=== PATIENT | male | born 1955 | race Caucasian/White ===

== ENCOUNTER → 2018-03-02 15:17 | Outpatient (CLI) | payer OTHER, SELFPAY ==
[2018-03-02 15:47] LABS: Add Manual Diff / Slide Review NO; Basophils Percent Auto 0.6 % (0-2); Eosinophils Percent Auto 3.3 % (2-4); Hematocrit 42.4 % (41-53); Hemoglobin 14.1 g/dL (13.5-17.5); Lymphocytes Percent Auto 22.1 % (25-40); Mean Corpuscular HGB Conc 33.3 % (30-36); Mean Corpuscular Hemoglobin 29.5 PG (26-34); Mean Corpuscular Volume 88.6 fL (80-100); Monocytes Percent Auto 9.7 % (3-14); Neutrophils Absolute Auto 3500 /uL (3000-5900); Neutrophils Percent Auto 64.3 % (50-75); Platelet Count 296 X10^3/uL (150-400); Red Blood Cell Count 4.79 X10^6/uL (4.5-5.9); Red Cell Distribution Width 13.9 % (11.6-14.8); White Blood Cell Count 5.5 X10^3/uL (4.5-11.0)
[2018-03-02 17:29] LABS: Alanine Aminotransferase 35 IU/L (21-72); Albumin 4.3 g/dL (3.5-5.0); Albumin Globulin Ratio 1.4 (1.0-2.8); Alkaline Phosphatase 73 U/L (38-126); Aspartate Aminotransferase 39 IU/L (17-59); BUN Creatinine Ratio 23.8 (6-22); Bilirubin Total 0.7 mg/dL (0.2-1.3); Blood Urea Nitrogen 19 mg/dL (9-20); Calcium 9.5 mg/dL (8.4-10.2); Carbon Dioxide 32 mmol/L (22-32); Chloride 98 mmol/L (98-107); Cholesterol 157 mg/dL (140-199); Estimated Glomerular Filt Rate > 60.0 mL/min (>60); Glucose 72 mg/dL (80-110); HDL Cholesterol 62 mg/dL (40-60); HEMOLYSIS < 15 (0-50); LDL Cholesterol Calculated 85 mg/dL (<100); Potassium 4.3 mmol/L (3.4-5.1); Sodium 141 mmol/L (137-145); Total Protein 7.3 g/dL (6.3-8.2); Triglycerides 49 mg/dL (35-150)
[2018-03-02 17:59] LABS: Prostate Specific Antigen Scrn 0.241 ng/mL (0.1-4.0); Thyroid Stimulating Hormone 1.82 uIU/mL (0.47-4.68)
== END ==
PROVIDERS: Family Provider Family Medicine; PCP Family Medicine; Visit Provider Family Medicine
DX: N40.1 Benign prostatic hyperplasia with lower urinary tract symptoms (principal); E78.5 Hyperlipidemia, unspecified; I10 Essential (primary) hypertension; G62.9 Polyneuropathy, unspecified; Z00.00 Encounter for general adult medical examination without abnormal findings
CPT/HCPCS: 36415; 80053; 80061; 84443; 85025; G0103

== ENCOUNTER → 2019-05-27 16:37 | Outpatient (CLI) | payer OTHER, SELFPAY ==
[2019-05-27 16:54] LABS: Bacteria Urine None Seen
[2019-05-27 17:20] LABS: Appearance Urine UA CLEAR; Bilirubin Urine UA NEGATIVE (NEGATIVE); Color Urine UA YELLOW; Glucose Urine UA NEGATIVE (Negative); Ketones Urine UA NEGATIVE (NEGATIVE); Leukocyte Esterase Urine UA NEGATIVE (NEGATIVE); Nitrite Urine UA NEGATIVE (Negative); Occult Blood Urine UA NEGATIVE (Negative); Protein Urine UA TRACE (Negative); Specific Gravity Urine UA 1.015 (1.000-1.035); Urobilinogen Urine UA 0.2 E.U./dL (0.2)
[2019-05-27 17:28] LABS: Hemoglobin A1C% w Est Avg Glu 5.5 % (4.0-6.0)
[2019-05-27 17:33] LABS: Hyaline Casts Urine 1-5/LPF; RBC Urine 1-5/HPF (0-5/HPF); Sperm Urine FEW (5-10/HPF); Squamous Epithelial Cell Urine 0-1 /HPF (0-5/HPF); WBC Urine 1-5/HPF (0-5/HPF)
[2019-05-27 17:34] LABS: Culture Indicated Urine Cult Not Indicated
== END ==
PROVIDERS: PCP Student in an Organized Health Care Education/Training Program; Visit Provider Student in an Organized Health Care Education/Training Program
DX: Z00.00 Encounter for general adult medical examination without abnormal findings (principal); R35.8 Other polyuria
CPT/HCPCS: 36415; 81001; 83036

== ENCOUNTER → 2019-08-14 11:50 | Outpatient (CLI) | payer OTHER, SELFPAY ==
[2019-08-14 13:19] LABS: Prostate Specific Antigen 0.249 ng/mL (0.10-4.00)
== END ==
PROVIDERS: PCP Student in an Organized Health Care Education/Training Program; Visit Provider Specialist
DX: N40.1 Benign prostatic hyperplasia with lower urinary tract symptoms (principal)
CPT/HCPCS: 36415; 84153

== ENCOUNTER → 2021-08-18 08:15 | Outpatient (CLI) | payer OTHER, SELFPAY ==
[2021-08-18 11:51] LABS: COVID19 -Nasal RAPID Negative (Negative)
== END ==
PROVIDERS: PCP Student in an Organized Health Care Education/Training Program; Visit Provider Physician Assistant
DX: Z20.822 Contact with and (suspected) exposure to COVID-19 (principal)
CPT/HCPCS: 87635

== ENCOUNTER 2021-08-20 12:42 | Day surgery (SDC) | payer OTHER, SELFPAY ==
[2021-08-20] VITALS (7 sets, daily range): BP systolic 112–142; BP diastolic 63–86; PULSE 50–71; RESP 10–18; TEMP 36.2; O2SAT 95–98; BMI 29.1
--- NOTE | 2021-08-20 12:17 | P.HP_ITS ---
History of Present Illness History of Present Illness Date Patient Seen: 08/20/21 Chief complaint: SDC Narrative: 66 year old male comes in today for consideration of a screening colonoscopy. Last colonoscopy in 2016, normal. He does have a history of colon polyps. Otherwise, there have been no lower GI symptoms suggesting disease such as change in bowel habits, bleeding, abdominal pain or anemia. Father had colon cancer. Overall health issues have been stable, including no major cardiac events for at least 6 weeks. PCP: Dr. 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 Household Members: Life Changes (2013) - Extreme stress, non-employment, L&I case 08/30/13, now over no children Alcohol drinks/day: 0 >5/day in last 3 mos: no Caffeine use/day: 0 Type of Exercise: walking Exercise Times per Week: when I can Guns in home: no Dental Care w/in 6 mos.: yes Sun Exposure: occasionally Seat Belt Use: yes Smoking Status: never smoker Drug Use: never Meds Home Medications and Allergies Home Medications Medication Instructions Recorded Confirmed Type doxepin 25 mg capsule 25 mg PO PRN PRN #0 04/22/16 08/20/21 History omeprazole 20 mg capsule,delayed 20 mg PO PRN PRN #0 04/22/16 08/20/21 History release pregabalin 150 mg capsule (Lyrica) 150 mg PO QDAY #0 04/22/16 08/20/21 History tamsulosin 0.4 mg capsule (Flomax) 0.4 mg PO QDAY #0 cap 04/22/16 08/20/21 History lisinopril 2.5 mg tablet 2.5 mg PO DAILY 08/20/21 08/20/21 History Allergies Allergy/AdvReac Type Severity Reaction Status Date / Time tomato Allergy Intermediate SEVERE ABD Verified 08/20/21 13:44 CRAMPING, DIARRHEA Review of Systems Review of Systems Narrative: All remaining ROS were reviewed and negative except as addressed. Exam Narrative Exam Narrative: GENERAL: Alert and oriented, appearing stated age and in no acute distress. HEENT: Head normocephalic/atraumatic. Extraocular movements intact. LUNGS: Clear to ausculation bilaterally, no wheezes, rhonchi or rales. CV: Normal S1 and S2 with regular rate and rhythm, no audible murmurs, rubs or gallops. ABDOMEN: Soft, non-tender, non-distended, no organomegaly. Positive bowel sounds. EXTREMITIES: No clubbing, cyanosis, or edema. NEURO: Cranial nerves II through XII grossly intact, no focal deficits. PSYCH: Alert and oriented x 3. SKIN: No concerning lesions. Assessment & Plan Assessment & Plan narrative: 1. History of colon polyps 2. Family history of colon cancer 3. Screening for colon cancer Plan for colonoscopy. The nature and character of the procedure as well as anticipated results were discussed. The possibility of not completing the procedure was also discussed. Possible complications including aspiration pneumonia, bleeding, perforation and reaction to medications either for sedation or preparation and missed lesions were discussed. Questions were answered and proceeding to the colonoscopy was elected. Informed consent signed. I sincerely appreciate the referral allowing me to participate in this patient's care. Please contact me with any questions or concerns.
--- NOTE | 2021-08-20 12:23 | P.OP.COLON_ITS ---
Operative Date/Time/Diagnoses Date of procedure: 08/20/21 Procedure Notes SCOAP/Timeout: 2:14 p.m. Procedure in detail: ENDOSCOPIST: Ceci Herrera MD Sedation RN: Jordyn Lock RN Sedation start time: 2:20 p.m. Sedation end time: 2:32 p.m. PROCEDURE: Colonoscopy INDICATIONS: 1. History of colon polyps 2. Family history of colon cancer 3. Screening for colon cancer MEDICATION: Levsin 0.125 mg sublingual, incremental doses of Versed and fent anyl until appropriate level sedation achieved. ASA CLASS: 2 CECAL WITHDRAWAL TIME: 6 minutes COMPLICATIONS: None. EXTENT OF PROCEDURE: Cecum. QUALITY OF PREP: Good with portions of liquid stool. PROCEDURE: Prior to insertion of the colonoscope, a digital rectal examination was accomplished with circumferential palpation of the distal rectal mucosa without significant findings being noted. The high-definition colonoscope was passed into the rectum in the usual fashion and advanced over to the cecum without difficulty. The ileocecal valve, appendiceal stoma, and medial wall all could be inspected and no abnormalities were seen. ASCENDING COLON: As the colonoscope was withdrawn, care was taken to expose and inspect the haustral folds and no abnormalities were seen. HEPATIC FLEXURE: Normal, no polyps, diverticula or other abnormalities. TRANSVERSE COLON: Normal, no polyps, diverticula or other abnormalities. DESCENDING COLON: Normal, no polyps, diverticula or other abnormalities. SIGMOID COLON: Normal, no polyps, diverticula or other abnormalities. RECTUM: Normal. J maneuver was produced. There was no significant perianal disease. The J maneuver was broken. The remainder of the rectum was inspected and there was no external hemorrhoid disease. The scope was withdrawn. IMPRESSION: 1. Normal colonoscopy PLAN: 1. Repeat colonoscopy in 5 years. The possibility of a missed lesion including a malignancy has been discussed with the patient previously. Potential alarm symptoms have been discussed and should be reported immediately.
[2021-08-20] MEDS: HYOSCYAMINE 0.125 MG TABLET PO (13:23)
[2021-08-20] MEDS: LACTATED RINGERS 1,000 ML 200 ML IV (13:45)
[2021-08-20] MEDS: fentaNYL 250 MCG/5 ML INJ IV (14:17)
[2021-08-20] MEDS: MIDAZOLAM 5 MG/5 ML VIAL IV (14:18)
--- NOTE | 2021-08-20 15:55 | SUR.PHASEII ---
phase *2- 1530-met criteria for discharge .aa &o x4. vss. abdomen soft. denies pain and tolerated po fluids. Ride called. home instructions reviewed,and copies to patient,along with pictures. up and mobile independently in unit. used restroom and voided/passed gas w/out problems. iv out. dressed. ride on way to hospital. 1555-escorted by w/chair with paperwork,possessions and tranfered to into private vehicle/carlos -friend here for pickup.
== END 2021-08-20 15:55 | disposition home or self-care (01) ==
PROVIDERS: PCP Student in an Organized Health Care Education/Training Program; Referring Provider Student in an Organized Health Care Education/Training Program; Visit Provider Student in an Organized Health Care Education/Training Program
PROC: 0DJD8ZZ Inspection of Lower Intestinal Tract, Via Natural or Artificial Opening Endoscopic (ICD-10-PCS; CPT 45378; principal; 2021-08-20 13:45)
DX: Z12.11 Encounter for screening for malignant neoplasm of colon (principal); Z86.010 Personal history of colon polyps; Z80.0 Family history of malignant neoplasm of digestive organs
CPT/HCPCS: 45378; J2250; J3010

== ENCOUNTER → 2023-01-31 18:56 | Outpatient (CLI) | payer OTHER, SELFPAY ==
--- NOTE | 2023-01-31 | DI.MRI.S_ITS ---
PROCEDURE: MR LUMBAR SPINE WO CON INDICATIONS: Paresthesia of skin TECHNIQUE: Noncontrast sagittal T1 spin echo and T2 fast echo, sagittal STIR, and T2 fast spin echo through the lumbar spine. In cases with scoliosis, additional coronal T2 fast spin echo may be performed. COMPARISON: [facility], MR, LUMBAR SPINE W/O CONTRAST, 10/21/2013, 10:24. FINDINGS: Image quality: Excellent. Alignment and Curvature: There is normal bony alignment. Bone Marrow: Marrow is of normal overall signal. No acute vertebral body compression fractures. Spinal Cord: Conus medullaris terminates at the L1-L2 level. Visualized cord demonstrates normal signal and size. Paraspinous Soft Tissues: No paravertebral masses. T12-L1: Normal appearance. L1-L2: Interval increase in diffuse disc bulge, eccentric to the left. Mild facet hypertrophy. Mild canal stenosis. Mild bilateral foraminal stenosis. L2-L3: Interval increase in disc bulge with minimal central posterior disc protrusion. Mild facet hypertrophy. Mild canal stenosis. Mild bilateral foraminal stenosis. L3-L4: Stable findings. Mild disc bulge. Mild facet hypertrophy. Mild canal stenosis. No significant foraminal stenosis. L4-L5: No significant change. Annulus tear. Disc bulge. Facet hypertrophy. Mild canal stenosis. [id number] right foraminal stenosis. L5-S1: No significant change. Posterior annulus tear plus disc bulge. Facet hypertrophy. No significant canal stenosis. No significant foraminal stenosis. IMPRESSION: 1. There are mildly progressive findings at L1-L2 and L2-L3. 2. Multilevel mild canal stenosis. No significant foraminal stenosis. Dictated by: Aaron Clements M.D. on 02/01/2023 at 10:05 Approved by: Aaron Clements M.D. on 02/01/2023 at 10:41
== END ==
PROVIDERS: Family Provider Student in an Organized Health Care Education/Training Program; PCP Internal Medicine; Referring Provider Physical Medicine & Rehabilitation; Visit Provider Physical Medicine & Rehabilitation
DX: R20.2 Paresthesia of skin (principal); M48.061 Spinal stenosis, lumbar region without neurogenic claudication; M51.36 Other intervertebral disc degeneration, lumbar region; M51.37 Other intervertebral disc degeneration, lumbosacral region
CPT/HCPCS: 72148

== ENCOUNTER → 2023-02-16 10:07 | Outpatient (CLI) | payer OTHER, SELFPAY | PROVIDERS: Family Provider Student in an Organized Health Care Education/Training Program; PCP Internal Medicine; Referring Provider Physical Medicine & Rehabilitation; Visit Provider Physical Medicine & Rehabilitation | DX: R20.2 Paresthesia of skin (principal) | CPT/HCPCS: 95886; 95910 ==